=== PATIENT | female | born 1945 | race Caucasian/White ===

== ENCOUNTER → 2018-03-10 | Outpatient (CLI) | payer MEDICARE ==
[~2018-03-10] MED LIST: ALEN70; Antacid500 MG PO; B Complex #11 EACH PO; CALCAVITDA PO; CENTRUM SILVER1 EAC2 PO; CEPH500 PO; CONEST.9; CONEST.9 PO; ESOM20 PO; FLUT.05NI; Keflex500 MG PO; LATISSE TP; OMEGA 3; PROACE100 PO; PROM25 PO; Pyridium200 MG PO; SUCR1 PO; SV FLAXSEED OI1 EACH PO; VITB100 PO
== END ==
LOC: LAB 16:35 → LAB SHORT 16:35
DX: L08.9 Local infection of the skin and subcutaneous tissue, unspecified (principal)
CPT/HCPCS: 87070; 87205

== ENCOUNTER → 2018-03-29 | Outpatient (CLI) | payer MEDICARE | END | disposition home or self-care (01) | LOC: LAB EV 07:38 → LAB SHORT 07:38 | DX: N39.0 Urinary tract infection, site not specified (principal) | CPT/HCPCS: 87086 ==

== ENCOUNTER 2020-12-14 03:05 | Observation (INO) | payer MEDICARE ==
[~2020-12-14] VITALS: Ht 172.7 cm; Wt 53.9 kg
[2020-12-14 03:46] LABS: BASOPHILS ABSOLUTE AUTO 0.03 K/mm3 (0.00-0.23); BASOPHILS PERCENT AUTO 0 % (0-2); EOSINOPHILS ABSOLUTE AUTO 0.08 K/mm3 (0.00-0.68); EOSINOPHILS PERCENT AUTO 1 % (0-6); Hematocrit 40.2 % (33.0-51.0); Hemoglobin 13.4 g/dL (11.5-16.0); IMMATURE GRAN ABSOLUTE AUTO 0.03 K/mm3 (0.00-0.10); IMMATURE GRAN PERCENT AUTO 0 % (0-1); LYMPHOCYTES ABSOLUTE AUTO 3.47 K/mm3 (0.84-5.20); LYMPHOCYTES PERCENT AUTO 41 % (21-46); MONOCYTES ABSOLUTE AUTO 0.47 K/mm3 (0.16-1.47); MONOCYTES PERCENT AUTO 6 % (4-13); Mean Corpuscular HGB 32.1 pg (26.0-34.0); Mean Corpuscular HGB Conc 33.3 g/dL (31.5-36.5); Mean Corpuscular Volume 96 fL (80-100); Mean Platelet Volume 11.1 fL (9.1-12.4); NEUTROPHILS ABSOLUTE AUTO 4.44 K/mm3 (1.96-9.15); NEUTROPHILS PERCENT AUTO 52 % (41-73); Platelet Count 237 K/mm3 (150-400); RDW Coefficient Variation 13.1 % (11.7-14.2); RDW Standard Deviation 46.7 fL (35.1-46.3); Red Blood Cell Count 4.17 M/mm3 (3.80-5.20); White Blood Cell Count 8.52 K/mm3 (4.00-11.30)
[2020-12-14 04:00] LABS: Alanine Aminotransfer (ALT/SGP 27 U/L (12-78); Albumin/Globulin Ratio 1.1 (0.8-1.8); Alk Phos 85 U/L (50-136); Anion Gap 11 mmol/L (6-16); Aspartate Aminotrans (AST/SGOT 21 U/L (12-37); Bilirubin, Total 0.5 mg/dL (0.1-1.0); Blood Urea Nitrogen 21 mg/dL (8-24); Bun/Creatinine Ratio 26.1 (12.0-20.0); CO2, Blood 25 mmol/L (21-32); Calcium, Blood 9.6 mg/dL (8.5-10.1); Chloride, Blood 103 mmol/L (98-108); Globulin, Blood 3.6 g/dL (2.2-4.0); Glomerular Filtration Rate >60 (60-); Glucose, Blood 145 mg/dL (70-99); Potassium, Blood 3.8 mmol/L (3.5-5.5); Sodium, Blood 139 mmol/L (136-145); Total Protein, Blood 7.6 g/dL (6.4-8.2); Troponin I <0.015 ng/mL (0.000-0.040)
--- NOTE | 2020-12-14 12:39 | NUR ---
RECIEVED REPORT FROM AZUL CHAVEZ RN, @ [id number].
--- NOTE | 2020-12-14 12:56 | NUR ---
ECHOCARDIOGRAM COMPLETE
[2020-12-14] MEDS ORDERED: FOSAMAX70 MG PO (13:09)
[2020-12-14] MEDS ORDERED: Cleocin HCl150 MG PO (13:11)
--- NOTE | 2020-12-14 15:08 | NUR ---
PATIENT ARRIVED TO ROOM 16 AT 1336. PATIENT TRANSFERED SELF INDEPENDENTLY FROM [facility] TO HOSPITAL BED. COMPLETED MED REC, ADMIT HISTORY AND H&P WITH THE ASSITANCE OF THE PATIENT. PATIENT IS ALERT AND ORIENTED. VITALS ARE STABLE AND HEART RHYTHM HAS NOW CONVERTED FROM AFIB TO NSR. PATIENT IN ROOM TALKING TO DR BUTT AT THIS TIME. CALL LIGHT WITHIN REACH.
[2020-12-14] MEDS ORDERED: XARELTO20 MG PO (15:41)
[2020-12-14] MEDS ORDERED: METO25 PO (15:41)
--- NOTE | 2020-12-14 15:43 | NUR ---
PATIENT TO BE DISCHARGED HOME SHE CONVERTED BACK TO NSR. TELE REMOVED AND RETURNED TO [facility] [employer]. IV DISCONTINUED. DISCHARGE PAPERWORK IN THE PROCESS. AT PATIENTS BEDSIDE. CALL LIGHT WITHIN REACH.
--- NOTE | 2020-12-14 16:02 | NUR ---
DISCHARGE PAPERWORK REVIEWED WITH PATIENT. EDUCATIONAL MATERIAL PROVIDED. ALL QUESTIONS ANSWERED. PATIENT DISCHARGED HOME WITH AT 1554; PATIENT AMBULATED OUT OF HER ROOM TO DISCHARGE HOME.
== END 2020-12-14 15:56 | disposition home or self-care (01) ==
LOC: ER 03:05 → ERHOLD 03:06 → PCU 13:33
PROVIDERS: Emergency Medicine; ADMIT Internal Medicine
DX: I48.91 Unspecified atrial fibrillation (principal); I34.0 Nonrheumatic mitral (valve) insufficiency; G47.30 Sleep apnea, unspecified; I51.7 Cardiomegaly; M81.0 Age-related osteoporosis without current pathological fracture; Z88.5 Allergy status to narcotic agent
CPT/HCPCS: 36415; 80053; 84443; 84484; 85025; 93005; 93010; 93306; 96375; 96376; 99285-25; A9270; G0378; J7030

== ENCOUNTER → 2025-07-17 | Outpatient (CLI) | payer MEDICARE ==
[~2025-07-17] MED LIST changes: +Cleocin HCl150 MG PO; +FOSAMAX70 MG PO; +METO25 PO; +XARELTO20 MG PO
[2025-07-17 08:49] LABS: BASOPHILS ABSOLUTE AUTO 0.02 K/mm3 (0.00-0.23); BASOPHILS PERCENT AUTO 0 % (0-2); EOSINOPHILS ABSOLUTE AUTO 0.08 K/mm3 (0.00-0.68); EOSINOPHILS PERCENT AUTO 2 % (0-6); Hematocrit 39.8 % (33.0-51.0); Hemoglobin 12.9 g/dL (11.5-16.0); IMMATURE GRAN ABSOLUTE AUTO 0.01 K/mm3 (0.00-0.10); IMMATURE GRAN PERCENT AUTO 0 % (0-1); LYMPHOCYTES ABSOLUTE AUTO 1.81 K/mm3 (0.84-5.20); LYMPHOCYTES PERCENT AUTO 39 % (21-46); MONOCYTES ABSOLUTE AUTO 0.29 K/mm3 (0.16-1.47); MONOCYTES PERCENT AUTO 6 % (4-13); Mean Corpuscular HGB Conc 32.4 g/dL (31.5-36.5); Mean Corpuscular Volume 98 fL (80-100); NEUTROPHILS ABSOLUTE AUTO 2.47 K/mm3 (1.96-9.15); NEUTROPHILS PERCENT AUTO 53 % (41-73); NRBC ABSOLUTE 0.00 K/mm3 (0.00-0.02); NRBC Auto 0.0 /100 WBC (0.0-0.2); Platelet Count 233 K/mm3 (150-400); RDW Coefficient Variation 13.2 % (11.7-14.2); RDW Standard Deviation 47.6 fL (35.1-46.3)
[2025-07-17 09:41] LABS: Alanine Aminotransfer (ALT/SGP 29.0 U/L (12-78); Albumin, Blood 4.0 g/dL (3.4-5.0); Albumin/Globulin Ratio 1.0 (0.8-1.8); Anion Gap 6.0 mmol/L (3-11); Aspartate Aminotrans (AST/SGOT 20.0 U/L (12-37); Bilirubin, Total 0.5 mg/dL (0.1-1.0); Blood Urea Nitrogen 15.0 mg/dL (8-24); CO2, Blood 30.0 mmol/L (21-32); Calcium, Blood 9.4 mg/dL (8.5-10.1); Chloride, Blood 106.0 mmol/L (98-108); Creatinine, Blood 0.75 mg/dL (0.40-1.00); Globulin, Blood 4.0 g/dL (2.2-4.0); Glucose, Blood 104.0 mg/dL (70-99); Potassium, Blood 3.9 mmol/L (3.5-5.5); Sodium, Blood 138.0 mmol/L (136-145); Total Protein, Blood 8.0 g/dL (6.4-8.2)
== END ==
LOC: LAB SHORT 08:44 → LAB 08:44
PROVIDERS: Chiropractor
DX: R10.11 Right upper quadrant pain (principal)
CPT/HCPCS: 80053; 83690; 84484; 85025

== ENCOUNTER 2025-08-22 01:55 | Emergency (ER) | payer MEDICARE ==
[~2025-08-22] VITALS: Ht 167.6 cm; Wt 63.5 kg
[2025-08-22 02:48] LABS: BASOPHILS ABSOLUTE AUTO 0.01 K/mm3 (0.00-0.23); BASOPHILS PERCENT AUTO 0 % (0-2); EOSINOPHILS ABSOLUTE AUTO 0.11 K/mm3 (0.00-0.68); EOSINOPHILS PERCENT AUTO 2 % (0-6); Hematocrit 40.4 % (33.0-51.0); Hemoglobin 13.0 g/dL (11.5-16.0); IMMATURE GRAN ABSOLUTE AUTO 0.01 K/mm3 (0.00-0.10); IMMATURE GRAN PERCENT AUTO 0 % (0-1); LYMPHOCYTES ABSOLUTE AUTO 2.42 K/mm3 (0.84-5.20); LYMPHOCYTES PERCENT AUTO 46 % (21-46); MONOCYTES ABSOLUTE AUTO 0.39 K/mm3 (0.16-1.47); MONOCYTES PERCENT AUTO 7 % (4-13); Mean Corpuscular HGB Conc 32.2 g/dL (31.5-36.5); Mean Corpuscular Volume 97 fL (80-100); NEUTROPHILS ABSOLUTE AUTO 2.33 K/mm3 (1.96-9.15); NEUTROPHILS PERCENT AUTO 44 % (41-73); NRBC ABSOLUTE 0.00 K/mm3 (0.00-0.02); NRBC Auto 0.0 /100 WBC (0.0-0.2); Platelet Count 180 K/mm3 (150-400); RDW Coefficient Variation 13.8 % (11.7-14.2); RDW Standard Deviation 49.2 fL (35.1-46.3)
[2025-08-22 03:12] LABS: Alanine Aminotransfer (ALT/SGP 36.0 U/L (12-78); Albumin, Blood 4.0 g/dL (3.4-5.0); Albumin/Globulin Ratio 1.2 (0.8-1.8); Anion Gap 9.0 mmol/L (3-11); Aspartate Aminotrans (AST/SGOT 34.0 U/L (12-37); Bilirubin, Total 0.3 mg/dL (0.1-1.0); Blood Urea Nitrogen 17.0 mg/dL (8-24); CO2, Blood 30.0 mmol/L (21-32); Calcium, Blood 10.0 mg/dL (8.5-10.1); Chloride, Blood 104.0 mmol/L (98-108); Creatinine, Blood 0.76 mg/dL (0.40-1.00); Globulin, Blood 3.4 g/dL (2.2-4.0); Glucose, Blood 114.0 mg/dL (70-99); Magnesium, Blood 2.3 mg/dL (1.6-2.4); Potassium, Blood 3.7 mmol/L (3.5-5.5); Sodium, Blood 139.0 mmol/L (136-145); Total Protein, Blood 7.4 g/dL (6.4-8.2)
[2025-08-22 04:13] VITALS: BP 126/88
== END 2025-08-22 04:16 | disposition home or self-care (01) ==
LOC: ER 01:55
PROVIDERS: Student in an Organized Health Care Education/Training Program
DX: I48.91 Unspecified atrial fibrillation (principal); Z88.5 Allergy status to narcotic agent; Z79.01 Long term (current) use of anticoagulants; Z79.899 Other long term (current) drug therapy
CPT/HCPCS: 80053; 83735; 85025; 93005; 93010; 99285-25; J7120